=== PATIENT | female | born 2000 | race American Indian/Alaskan Native ===

== ENCOUNTER 2018-11-10 19:56 | Inpatient (IN) | payer MEDICAID ==
[2018-11-10] MEDS ORDERED: CERVIDIL VG ONE (21:32)
[2018-11-10 22:00] LABS: Hemoglobin 11.3 gm/dl (10.1-14.3); Mean Corpuscular HGB Conc 32 % (30-34); Mean Corpuscular Volume 79 fl (79-97); Platelet Count 294 K/mm3 (140-440); Red Blood Count 4.41 M/mm3 (3.65-5.03); Red Cell Distribution Width 14.7 % (13.2-15.2)
[2018-11-10] MEDS: LACTATED RINGERS 1,000 ML IV SCH ×2 (22:48→23:45)
--- NOTE | 2018-11-11 08:27 | History and Physical Report ---
History of Present Illness Date of examination: 11/11/18 Date of admission: 11/10/18 19:56 Chief complaint: Induction of labor History of present illness: Pt is a 18yo BF EDC 11/11/18; EGA 40 0/7 weeks presents to L&D for induction of labor due to Morbid Obesity per [facility]. She received care at [facility] since 11 weeks and co-managed by [facility] for Morbid Obesity and Polyhydramnios. records are available and GBS is Negative. Past History Past Medical History: no pertinent history Past Surgical History: no surgical history Family/Genetic History: none Social history: no significant social history, single - Obstetrical History Expected Date of Delivery: 11/11/18 Actual Gestation: 40 Week(s) 0 Day(s) : 1 Medications and Allergies Allergies Allergy/AdvReac Type Severity Reaction Status Date / Time No Known Allergies Allergy Unverified 11/10/18 21:31 Active Meds: Active Medications Lactated Ringer's (Lactated Ringers) 1,000 mls @ 125 mls/hr IV DIRECT ARTURO Last Admin: 11/10/18 23:45 Dose: 125 mls/hr Documented by: Review of Systems All systems: negative - Vital Signs Vital signs: Vital Signs Pulse BP 129 H 129/86 11/10/18 20:27 11/10/18 20:27 Temp Pulse Resp BP Pulse Ox 98.4 F 98 H 18 103/60 11/11/18 08:02 11/11/18 08:02 11/10/18 20:30 11/11/18 08:02 - Physical Exam Breasts: Positive: deferred Cardiovascular: Regular rate Lungs: Positive: Clear to auscultation Abdomen: Positive: normal appearance Genitourinary (Female): Positive: normal external genitalia Vagina: Positive: normal moisture Uterus: Positive: enlarged Extremities: Positive: normal - Obstetrical FHR: category 1 Uterine Contraction Monitor Mode: External Cervical Dilatation: 0 (per nurse) Cervical Effacement Percentage: 30 (per nurse) station: -3 Uterine Contraction Pattern: Irregular Uterine Tone Measurement Phase: Contraction Uterine Contraction Intensity: Mild Results Result Diagrams: 11/10/18 21:44 Abnormal lab results 11/10/18 Range/Units 21:44 WBC 11.6 H (4.5-11.0) K/mm3 MCH 26 L (28-32) pg All other labs normal. Assessment and Plan - Patient Problems (1) 40 weeks gestation of Onset Date: 11/11/18 Current Visit: Yes Status: Acute Plan to address problem: A: IUP @ 40 0/7 weeks Morbid Obesity Polyhydramnios P: Admit to L&D for cervidil/pitocin induction of labor (2) Morbid (severe) obesity due to excess calories Onset Date: 11/11/18 Current Visit: Yes Status: Acute (3) Polyhydramnios affecting in third trimester Onset Date: 11/11/18 Current Visit: Yes Status: Acute
[2018-11-11] MEDS ORDERED: SUBLIMAZE IV PRN (13:09)
[2018-11-11] MEDS ORDERED: PITOCin/NS 20 UNIT/1000ML DRIP 20,000 MILLIUNITS/1,000 ML BAG IV ONE (18:37)
[2018-11-11] MEDS ORDERED: PEPCID IV ONE ×2 (18:37→19:40)
[2018-11-11] MEDS ORDERED: BICITRA ONE (18:37)
[2018-11-11] MEDS ORDERED: REGLAN ONE (18:38)
[2018-11-11] MEDS ORDERED: BICITRA PO ONE (19:40)
[2018-11-11] MEDS ORDERED: REGLAN IV ONE (19:40)
[2018-11-11] MEDS ORDERED: ANCEF/STERILE WATER 2 GM/20 ML 2 GM/20 ML SYRINGE IV NR (20:00)
[2018-11-11] MEDS ORDERED: LACTATED RINGERS 1,000 ML IV SCH (20:00)
[2018-11-11] MEDS ORDERED: PITOCin/NS 20 UNIT/1000ML DRIP 20 UNITS/1,000 ML BAG IV SCH ×2 (20:00→23:45)
[2018-11-11] MEDS ORDERED: NACL 0.9% IR ONE (21:40)
[2018-11-11] MEDS ORDERED: WATER FOR IRRIG STERILE IR ONE (21:40)
[2018-11-11] MEDS ORDERED: LIDOCAINE 1.5%/EPI 1:200,000 INFILTRATI ONE (22:11)
[2018-11-11] MEDS ORDERED: MARCAINE-EPI/PF 0.5%-1:200,000 INFILTRATI ONE (23:01)
[2018-11-11] MEDS ORDERED: MARCAINE 0.25% INFILTRATI ONE (23:05)
--- NOTE | 2018-11-11 23:08 | Operative Report ---
Operative Report Operative Report: Date of procedure: 11/11/2018 Pre-operative diagnosis: 1. Intrauterine at 40-0/7 weeks 2. Failed induction of labor 3. Morbid obesity 4. Polyhydramnios Post-operative diagnosis: Same Procedure name(s): Primary low transverse section Surgeon: Fabian Brown MD Manager Title: None Anesthesia: Spinal anesthesia by Dr. Do EBL: 450 mL's Findings: A 3558 g female infant Apgars 8 at 1 minute and 9 at 5 minutes. Clear amniotic fluid. Normal uterus. Normal tubes and ovaries bilaterally. Procedure: After the patient was prepped and draped in usual sterile fashion, and after satisfactory level of epidural anesthesia was obtained, the skin knife was used to make a transverse skin incision. The incision was excised down to layer of the fascia, which was nicked in the midline and extended laterally using the Bovie cautery. The rectus muscles were dissected off the rectus fascia both superiorly and inferiorly. The rectus bellies in the midline, and the peritoneum was entered under direct visualization. The peritoneal incision was extended superiorly and inferiorly. A bladder flap was created and the bladder blade was then placed. The uterus was scored in a curvilinear linear fashion, entered in the midline revealing clear amniotic fluid. The infant's head was delivered onto the surgical field, and the oropharynx and nasopharynx were bulb suctioned. The rest of the infant's body was delivered, cord was doubly clamped and cut and the infant was handed to the waiting respiratory team. The placenta was manually removed from the uterus, and the uterus removed from its normal anatomical position. After gentle uterine lavage, the incision was inspected and found to be without extensions. It was then closed in 2 layers using 0 Vicryl suture in a running interlocking fashion, the second layer imbricating the first. After good hemostasis was achieved, copious amounts or irrigation was performed, and the gutters were suctioned free of blood and blood clots. Tisseel sealant was sprayed across the uterine incision. The uterus was then returned to its normal anatomical position, and after excellent hemostasis assured, the peritoneum was re- approximated using 3-0 Vicryl suture in a running interlocking fashion, and then the rectus muscles were re-approximated using 3-0 Vicryl suture in a [id number] configuration. The fascia was then re-approximated using 0 Vicryl suture in running interlocking fashion. The subcutaneous layer was made hemostatic using Bovie cautery, the Tisseel sealant was sprayed across the fascial incision and the skin edges re-approximated using 4-0 Vicryl suture in a sub-cuticular fashion. Patient tolerated the procedure well was transported to recovery in stable condition.
[2018-11-11] MEDS ORDERED: TYLENOL PO PRN (23:12)
[2018-11-11] MEDS ORDERED: LANSINOH TP PRN (23:12)
[2018-11-11] MEDS ORDERED: NARCAN 0.4 MG/1 ML IV PRN (23:12)
[2018-11-11] MEDS ORDERED: SENOKOT PO PRN (23:12)
[2018-11-11] MEDS ORDERED: PERCOCET 5/325 PO PRN (23:12)
[2018-11-11] MEDS ORDERED: MILK OF MAGNESIA PO PRN (23:12)
[2018-11-11] MEDS ORDERED: PHENERGAN PR PRN (23:12)
[2018-11-11] MEDS ORDERED: TUCKS PAD TP PRN (23:12)
[2018-11-11] MEDS ORDERED: MYLICON PO PRN (23:12)
[2018-11-11] MEDS ORDERED: ZOFRAN IV PRN (23:12)
[2018-11-11] MEDS ORDERED: NORCO 5/325 PO PRN (23:12)
[2018-11-11] MEDS ORDERED: D5LR 1,000 ML IV SCH (23:45)
[2018-11-11] MEDS ORDERED: SODIUM CHLORIDE FLUSH SYRINGE 10 ML IV NR (23:45)
[2018-11-12] MEDS: TORADOL IV PRN ×2 (01:49→08:23)
[2018-11-12] MEDS: ANCEF/NS 1 GM/50 ML 1 GM/50 ML BAG IV SCH ×2 (03:57→11:24)
[2018-11-12] MEDS ORDERED: BOOSTRIX IM ONE (06:00)
[2018-11-12] MEDS ORDERED: M-M-R II VACCINE SUB-Q ONE (06:00)
[2018-11-12] MEDS ORDERED: PRENATAL VITAMIN PO SCH (10:00)
[2018-11-12] MEDS ORDERED: FEOSOL PO SCH (10:00)
[2018-11-12 11:49] LABS: Hematocrit 36.3 % (30.3-42.9); Hemoglobin 11.6 gm/dl (10.1-14.3)
[2018-11-12] MEDS: IBUPROFEN PO PRN (18:45)
--- NOTE | 2018-11-12 19:38 | Progress Note ---
Assessment and Plan - Patient Problems (1) 40 weeks gestation of Onset Date: 11/11/18 Current Visit: Yes Status: Resolved (2) Morbid (severe) obesity due to excess calories Onset Date: 11/11/18 Current Visit: Yes Status: Chronic (3) Polyhydramnios affecting in third trimester Onset Date: 11/11/18 Current Visit: Yes Status: Resolved (4) Status post Onset Date: 11/12/18 Current Visit: Yes Status: Resolved Plan to address problem: A: S/P C Section - POD #1 Doing well Asymptomatic anemia - stable P: Continue RPOC Anticipate discharge in 24-48hrs Subjective - Subjective Date of service: 11/12/18 Principal diagnosis: s/p C Section - POD #1 Interval history: Pt is feeling well without complaints. Bleeding improved. She is tolerating a reg diet without nausea or vomiting, ambulating and voiding without difficulty. Patient reports: appetite normal, voiding normally, pain well controlled, flatus, ambulating normally, no dizzy ambulation, no nauseated [place]: doing well, nursing well, bottle feeding Objective - Vital Signs Latest vital signs: Vital Signs Temp Pulse Resp BP BP Pulse Ox 11/12/18 16:07 97.9 F 85 18 100/62 97 11/12/18 12:52 97.6 F 78 18 107/67 98 11/12/18 08:23 20 11/12/18 07:36 98.2 F 79 20 110/67 98 11/12/18 04:25 98.2 F 87 18 114/69 11/12/18 01:49 20 11/12/18 01:00 98.1 F 95 H 18 113/79 11/12/18 00:30 97.8 F 91 H 17 112/79 100 11/12/18 00:10 91 H 16 105/77 99 11/11/18 23:55 101 H 15 123/68 100 11/11/18 23:45 96 H 13 103/70 100 11/11/18 23:40 95 H 16 103/73 100 11/11/18 23:35 105 H 17 92/72 100 11/11/18 23:30 97.9 F 107 H 13 93/53 100 11/11/18 20:31 93 H 111/74 Intake and Output 11/12/18 11/12/18 11/12/18 06:59 14:59 22:59 Intake Total 290 480 840 Output Total 1100 1100 200 Balance -810 -620 640 Intake: IV 50 ANCEF/NS 1 GM/50 ML 1 gm 50 In 50 ml @ 100 mls/hr IV Q8H [facility] Rx#:[id number] Oral 240 120 360 Intake, Free Water 360 480 Output: Urine 1100 1100 200 Indwelling Catheter 800 1100 200 Uretheral ([place]) 150 Other: Total, Intake Amount 240 120 360 Total, Output Amount 800 1100 200 # Voids Indwelling Catheter 1 - Exam Breasts: Present: deferred Cardiovascular: Present: Regular rate Lungs: Present: Clear to auscultation Abdomen: Present: normal appearance, soft Uterus: Present: normal, firm Extremities: Present: normal Incision: Present: normal, dry, intact, dressed - Labs Labs: Laboratory Tests 11/10/18 11/10/18 11/10/18 21:00 21:44 21:44 WBC 11.6 H RBC 4.41 Hgb 11.3 Hct 35.0 MCV 79 MCH 26 L MCHC 32 RDW 14.7 Plt Count 294 RPR Nonreactive Blood Type A POSITIVE Antibody Screen Negative 11/12/18 11:12 WBC RBC Hgb 11.6 Hct 36.3 MCV MCH MCHC RDW Plt Count RPR Blood Type Antibody Screen
[2018-11-13] MEDS: IBUPROFEN PO PRN (09:21)
--- NOTE | 2018-11-13 12:06 | Progress Note ---
Assessment and Plan - Patient Problems (1) 40 weeks gestation of Onset Date: 11/11/18 Current Visit: Yes Status: Resolved (2) Morbid (severe) obesity due to excess calories Onset Date: 11/11/18 Current Visit: Yes Status: Chronic (3) Polyhydramnios affecting in third trimester Onset Date: 11/11/18 Current Visit: Yes Status: Resolved (4) Status post Onset Date: 11/12/18 Current Visit: Yes Status: Resolved Plan to address problem: A: S/P C Section - POD #2 Doing well Asymptomatic anemia - stable P: May go home today. Subjective - Subjective Date of service: 11/13/18 Principal diagnosis: s/p C Section - POD #2 Interval history: Pt is feeling well without complaints. Bleeding improved. She is tolerating a reg diet without nausea or vomiting, ambulating and voiding without difficulty. Patient reports: appetite normal, voiding normally, pain well controlled, flatus, ambulating normally, no dizzy ambulation, no nauseated [place]: doing well, bottle feeding Objective - Vital Signs Latest vital signs: Vital Signs Temp Pulse Resp BP BP Pulse Ox 11/13/18 09:21 97.9 F 82 18 105/71 98 11/13/18 00:00 98.2 F 94 H 18 101/68 11/12/18 23:51 18 11/12/18 22:51 16 11/12/18 16:07 97.9 F 85 18 100/62 97 11/12/18 12:52 97.6 F 78 18 107/67 98 Intake and Output 11/12/18 11/13/18 11/13/18 22:59 06:59 14:59 Intake Total 1080 240 240 Output Total 200 Balance 880 240 240 Intake: Oral 600 240 Intake, Free Water 480 240 Output: Urine 200 Indwelling Catheter 200 Other: Total, Intake Amount 240 240 Total, Output Amount 200 # Voids Indwelling Catheter 1 1 1 - Exam Breasts: Present: deferred Abdomen: Present: normal appearance, soft Uterus: Present: normal, firm, fundal height below umbilicus Extremities: Present: normal Incision: Present: normal, dry, intact
--- NOTE | 2018-11-13 12:21 | Discharge Summary ---
Providers - Providers Date of Admission: 11/10/18 19:56 Date of discharge: 11/13/18 Attending physician: SONIA SWEENEY Primary care physician: SONIA SWEENEY Hospitalization Reason for admission: induction of labor, IUP at term Delivery: Procedure: section, primary low transverse Episiotomy: none Laceration: none Incision: normal, dry, intact Other procedures: none complications: none Discharge diagnosis: IUP at term delivered [place] baby: female Hospital course: Pt is a 18yo BF EDC 11/11/18; EGA 40 0/7 weeks presents to L&D for induction of labor due to Morbid Obesity per [facility]. She received care at [facility] since 11 weeks and co-managed by [facility] for Morbid Obesity and Polyhydramnios. records were available and GBS was Negative. She received cervidil, but did not tolerate labor, so she was delivered by an uncomplicated C Section. By POD #2 she was tolerating a reg diet without nausea or vomiting, ambulating and voiding without difficulty, and so was discharged to home on POD #2 in stable condition. Condition at discharge: Good Disposition: DC-01 TO HOME OR SELFCARE - Discharge Diagnoses (1) 40 weeks gestation of Status: Resolved (2) Morbid (severe) obesity due to excess calories Status: Chronic (3) Polyhydramnios affecting in third trimester Status: Resolved (4) Status post Status: Resolved Plan - Discharge Medications Prescriptions: Ferrous Sulfate [Feosol 325 MG tab] 325 mg PO BID #60 tablet HYDROcodone/APAP 5-325 [[place] 5/325] 1 each PO Q6HR PRN #30 tablet PRN Reason: Pain Ibuprofen [Motrin] 800 mg PO Q8HR PRN #30 tablet PRN Reason: Moder Pain Unrelieved By [place] Pnv No.95/Ferrous Fum/Folic AC [ Vitamin Tablet] 1 each PO DAILY #30 tablet - Provider Discharge Summary Activity: routine, no sex for 6 weeks, no heavy lifting 4 weeks, no strenuous exercise Diet: routine Instructions: routine Additional instructions: [] Smoking cessation referral if applicable(refer to patient education folder for contact #) [] Refer to [facility] Booklet Call your doctor immediately for: * Fever > 100.5 * Heavy vaginal bleeding ( >1 pad per hour) * Severe persistent headache * Shortness of breath * Reddened, hot, painful area to leg or breast * Drainage or odor from incision. * Keep incision clean and dry at all times and follow doctor's instructions regarding bathing/showering - Follow up plan Follow up: SONIA SWEENEY MD [Primary Care Provider] - 14 Days MIKE COVARRUBIAS CNM [Advanced Practice Nurse] - 14 Days
[2018-11-13] MEDS ORDERED: BOOSTRIX IM ONE (12:42)
[2018-11-15 11:44] VITALS: BP 102/68
== END 2018-11-13 16:00 | disposition home or self-care (01) | DRG 765 ==
LOC: LD 19:56 → OB 11-12 01:22
PROVIDERS: ADMIT Obstetrics & Gynecology; ATTEND Obstetrics & Gynecology
PROC: 10D00Z1 Extraction of Products of Conception, Low, Open Approach (ICD-10-PCS; principal; 2018-11-11)
PROC: 3E0234Z Introduction of Serum, Toxoid and Vaccine into Muscle, Percutaneous Approach (ICD-10-PCS; 2018-11-12)
DX: O99.214 Obesity complicating childbirth (principal); O40.3XX0 Polyhydramnios, third trimester, not applicable or unspecified; O61.0 Failed medical induction of labor; E66.01 Morbid (severe) obesity due to excess calories; O99.02 Anemia complicating childbirth; D64.9 Anemia, unspecified; Z3A.40 40 weeks gestation of pregnancy; Z37.0 Single live birth; Z23 Encounter for immunization
CPT/HCPCS: 36415; 59200; 85014; 85018; 85027; 86592; 86850; 86900; 86901; 90715; G0378; C9250; J0690; J1885; J2590; J2765; J3010; J7120; J7121

== ENCOUNTER 2021-07-19 16:31 | Emergency (ER) | payer MEDICAID, OTHER ==
[2021-07-19 16:46] VITALS: BP 109/78
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
[2021-07-19] MEDS ORDERED: ACETAMINOPHEN 500 MG TAB PO ONE (17:51)
== END 2021-07-19 18:25 | disposition home or self-care (01) ==
LOC: ED 16:31
DX: S16.1XXA Strain of muscle, fascia and tendon at neck level, initial encounter (principal); S29.012A Strain of muscle and tendon of back wall of thorax, initial encounter; Z79.899 Other long term (current) drug therapy; V89.2XXA Person injured in unspecified motor-vehicle accident, traffic, initial encounter; Y93.89 Activity, other specified; Y92.488 Other paved roadways as the place of occurrence of the external cause; Y99.8 Other external cause status
CPT/HCPCS: 99282